=== PATIENT | male | born 1965 | race African-American/Black ===

== ENCOUNTER 2024-02-06 11:08 | Emergency (ER) | payer OTHER, SELFPAY ==
[2024-02-06 11:11] VITALS: BP 136/84
[2024-02-06 11:15] LABS: Glucose - Point of Care 384 mg/dl (70-99)
[2024-02-06 11:52] VITALS: BMI 28.3
--- NOTE | 2024-02-06 11:54 | ED.GENMED ---
History of Present Illness
General
Chief Complaint: Blood Sugar Problem
Source: patient
Exam Limitations: none
Time Seen by Provider: 02/06/24 11:09
Nursing documentation reviewed up to this point in time: agreed with
Travel History
Have you had any contact with someone who has COVID-19?: No
Do you have any symptoms of coronavirus? Fever > 100 degrees, chills, cough, shortness of breath, sore throat, loss of taste or smell, muscle aches, or headache?: No
History of Present Illness
History of Present Illness:
The patient is a 61-year-old man with a past medical history of diabetes who was sent from [facility] for hyperglycemia. Patient reports that sugar has been high now for several days to weeks. He reports that he only takes
Trulicity, every Monday. He reports that his dose was recently decreased a few weeks ago, from 1.5 mg to 0.75 mg. He reports he believes this is what is causing his sugar to be uncontrolled. Patient complains of fatigue but denies all pain. He
has had no chest pain, shortness of breath, fevers or chills. The patient reports he was given 20 units of regular insulin prior to coming here, about an hour ago.
Past History
Past History
ED Past Medical History: NIDDM
ED Past Surgical History: Other
Social History
Tobacco: Other
Alcohol: Other
Drug: Other
Personal: Other
Living: care home
Employment: Not employed
Family History
Family History: Other
Review of Systems
Review of Systems
Allergies reviewed?: Yes
All Other Systems: ROS reviewed and negative except as documented in HPI and ROS
Constitutional: Reports fatigue
EENT: Reports no symptoms
Respiratory: Reports no symptoms
Cardiac: Reports no symptoms
ABD/GI: Reports no symptoms
: Reports no symptoms
Musculoskeletal: Reports no symptoms
Skin: Reports no symptoms
Neurological: Reports no symptoms
Endocrine: Reports no symptoms
Hematologic/Lymphatic: Reports no symptoms
Psychiatric: Reports no symptoms
Phy Exam
Physical Exam
Physical Exam:
Physical Exam
General: no apparent distress, not acutely ill, well and comfortable appearing
Neck: supple. no meningeal signs. normal psoterior pharynx
Heart: s1/s2 regular rate and rhythm, no murmur. equal radial pulses.
Lungs: no acute respiratory distress. clear bilaterally
Abdomen: normal bowel sounds. not tender. no CVAT
Neuro: alert and oriented. no focal neurological deficits
Skin: no rash
Psychiatric: well kept. interactive and cooperative
Extremities: no edema. no calf tenderness. negative homans. good distal pulses
Course
Orders/Labs/Results
Orders:
Orders
02/06/24 11:19
EKG [Electrocardiogram (*1)] Urgent
Reason for Study: Other
Other Reason for Exam: blood sugar
02/06/24 11:20
EKG- Treatment ONCE
02/06/24 11:51
Complete Blood Count/With Diff Urgent
Comprehensive Metabolic Panel Urgent
02/06/24 11:52
0.9% Sodium Chloride 1000 ml [Nss] 1,000 ml IV BOLUS
02/06/24 14:19
Urinalysis Reflex To Culture Urgent
Date Specimen was Collected: 02/06/24
Time Specimen was Collected: 14:08
Abnormal Lab Results
02/06/24 02/06/24 02/06/24
11:14 11:51 14:19
RBC 6.64 H 10^6/uL
(4.70-6.10)
Hgb 12.2 L g/dL
(13.0-18.0)
Hct 38.9 L %
(39.0-52.0)
MCV 58.6 L fL
(80.0-94.0)
MCH 18.4 L pg
(27.0-31.0)
MCHC 31.4 L g/dL
(33.0-37.0)
RDW 15.8 H %
(11.5-14.5)
Neutrophils % 42.1 L %
(42.2-75.2)
Monocytes % 10.9 H %
(1.7-9.3)
Sodium 132 L mmol/L
(135-145)
Chloride 97 L mmol/L
(98-107)
Glucose 301 H mg/dl
(70-99)
Urine Glucose 3+ A
(Negative)
POC Glucose 384 H mg/dl
(70-99)
02/06/24 11:51
02/06/24 11:51
Vital Signs
Initial and Last Documented VS:
Initial Vital Signs
Temp Pulse Resp BP Pulse Ox
98.4 F 92 17 136/84 98
02/06/24 11:11 02/06/24 11:11 02/06/24 11:11 02/06/24 11:11 02/06/24 11:11
Last Documented Vital Signs
Temp Pulse Resp BP Pulse Ox
98.4 F 77 20 129/81 98
02/06/24 11:11 02/06/24 14:44 02/06/24 14:44 02/06/24 14:44 02/06/24 14:44
MDM/Problems Addressed
Differential Diagnosis Includes:
Hyperglycemia not DKA, DKA
MDM/Problems Addressed:
Patient presents with acute to subacute hyperglycemia
Chronic conditions affecting care: DM
Acute Exacerbation and/or Progression of Chronic Illness:
Patient likely has acute hyperglycemia due to poorly controlled diabetes
Acute Exacerbation and/or Progression of Chronic Illness: DM
*Pulse Oximetry
Patient hypoxic: no
*EKG
Interpreted by ED Provider?: Yes
Interpretation: abnormal
Comparison EKG: no comparison EKG present
Rate: normal
Rhythm: sinus
[place]: left axis deviation
Interval: normal interval
QRS Pattern: normal QRS
Ischemia: non-specific ST changes
*[place] [facility] Interpretation
Rate: normal
Interpretation: normal
Rhythm: sinus
*Critical Care Note
Total Time (30-74mins, 75-104mins- exclusive of procedures): Not Applicable
Data Reviewed
Source: patient
Update Note
Update Note:
Patient remains well and comfortable appearing. There is no sign of DKA. Lungs are clear and there is no sign of pneumonia. Dietary changes related to patient being in care home may have increased his blood sugar. Patient will be encouraged to
watch his sugar intake and to restart his usual dose of 1.5 mg of Trulicity due to the fact that he reports that he has had success with controlling his blood sugar with this dose
ED Attending Note
-
Portions of this chart may have been created with voice recognition software.� Occasional wrong word or��sound alike� substitutions may have occurred due to the inherent limitations of voice recognition software.
Discharge Plan
Departure
Patient Disposition: Home (Routine Discharge)
Date of Disposition: 02/06/24
Time of Disposition: 14:33
Patient with high blood pressure during this ER visit?: Yes
Condition: Good
Covid-19: Not Applicable
Discharge Problem:
Acute hyperglycemia
Instructions: High Blood Sugar, Adult ED
Referrals:
[facility] [Family Provider] -
Activity Restrictions/Additional Instructions:
In one week, please restart your 1.5 mg dosage of Trulicity.
Interventions
Interventions:
*Risk Screen - Suicide Last Done: 02/06/24 11:57
*General Assessment Last Done: 02/06/24 11:57
*Neglect/Abuse Screening Last Done: 02/06/24 11:57
*ED COVID-19 Vaccine History Last Done: 02/06/24 11:56
*Nursing Disposition Last Done: 02/06/24 14:44
ED- Neurological Assessment Last Done: 02/06/24 11:55
Discharge Date and Time
Discharge Date/Time: 02/06/24 14:45
Print Language: LEBANESE
[2024-02-06] MEDS: NSS 1000 IV (11:55)
[2024-02-06 11:57] LABS: % Basophils 0.5 % (0-2); % Eosinophils 5.5 % (0-6); % Immature Granulocytes 0.2 % (0-0.5); % Lymphocytes 40.8 % (20.5-51.1); % Monocytes 10.9 % (1.7-9.3); % Neutrophils 42.1 % (42.2-75.2); Absolute Eosinophils 0.3 10^3/uL (0-0.7); Absolute Lymphocytes 2.4 10^3/uL (1.2-3.4); Absolute Monocytes 0.6 10^3/uL (0.1-0.6); Absolute Neutrophils 2.4 10^3/uL (1.4-6.5); Hematocrit 38.9 % (39.0-52.0); Hemoglobin 12.2 g/dL (13.0-18.0); Mean Corp Hgb Conc. 31.4 g/dL (33.0-37.0); Mean Corpuscular Hgb 18.4 pg (27.0-31.0); Mean Corpuscular Volume 58.6 fL (80.0-94.0); Mean Platelet Volume 9.1 fL (7.4-10.4); Nucleated Red Blood Cells % 0 % (-); Platelet Count 262 10^3/uL (130-400); Red Blood Cell Count 6.64 10^6/uL (4.70-6.10); Red Cell Dist. Width 15.8 % (11.5-14.5); White Blood Cell Count 5.8 10^3/uL (4.8-10.8)
[2024-02-06 12:00] VITALS: BP 116/77
[2024-02-06 12:12] LABS: ALT (SGPT) 17 U/L (0-50); AST (SGOT) 17 U/L (17-59); Albumin 4.6 g/dl (3.5-5.0); Alkaline Phosphatase 102 U/L (38-126); Blood Urea Nitrogen 16 mg/dl (9-20); Calcium 9.8 mg/dl (8.4-10.2); Carbon Dioxide 28 mmol/L (22-30); Chloride 97 mmol/L (98-107); Estimated Creatinine Clearance 106 ml/min; Glucose 301 mg/dl (70-99); Potassium 3.9 mmol/L (3.5-5.1); Sodium 132 mmol/L (135-145); Total Bilirubin 0.5 mg/dl (0.2-1.3); Total Protein 7.9 g/dl (6.3-8.2); eGFR > 60.00
[2024-02-06 13:00] VITALS: BP 109/72
[2024-02-06 13:51] LABS: Glucose - Point of Care 75 mg/dl (70-99)
[2024-02-06 14:00] VITALS: BP 129/81
[2024-02-06 14:32] LABS: Urine Albumin Negative (Neg - Trace); Urine Bilirubin Negative (Negative); Urine Character Clear (Clear); Urine Color Yellow; Urine Glucose 3+ (Negative); Urine Ketone Negative (Negative); Urine Leukocyte Negative (Negative); Urine Nitrite Negative (Negative); Urine Occult Blood Negative (Negative); Urine Urobilinogen Negative (Neg - 1+)
[2024-02-06 14:44] VITALS: BP 129/81
== END 2024-02-06 14:45 | disposition home or self-care (01) ==
LOC: EMR 11:08
PROVIDERS: EMERGENCY PHYSICIAN Emergency Medicine
DX: E11.65 Type 2 diabetes mellitus with hyperglycemia (principal)
CPT/HCPCS: 99283; 96360; 80053; 81003; 82962; 85025; 93005